=== PATIENT | male | born 1980 | race Caucasian/White ===

== ENCOUNTER 2016-11-25 21:17 | Emergency (ER) | payer BC ==
[~2016-11-25] VITALS: Ht 175.3 cm; Wt 81.6 kg
[~2016-11-25 21:17] MED LIST: CERTAGEN PO; FISH OIL 1,0001 CAP PO; NO MEDICATIONS
[2016-11-25] MEDS ORDERED: ENBREL50 MG/1 M1 (21:40)
== END 2016-11-25 23:49 | disposition home or self-care (01) ==
LOC: SED 21:17
DX: S05.01XA Injury of conjunctiva and corneal abrasion without foreign body, right eye, initial encounter (principal); Z98.890 Other specified postprocedural states; X58.XXXA Exposure to other specified factors, initial encounter; Y92.9 Unspecified place or not applicable
CPT/HCPCS: 99283